=== PATIENT | male | born 1965 | race Caucasian/White ===

== ENCOUNTER → 2020-02-07 | Day surgery (SDC) | payer OTHER ==
[~2020-02-07] MED LIST: BUPIVACAINE HCL 0.5 % INJ/PF 30 ML SDV ONE; LIDOCAINE 2% INJ (20 MG/ML) 20 ML MDV ONE; TRIAMCINOLONE ACETONIDE INJ 40 MG/1 ML VIAL ONE
--- NOTE | 2020-02-07 10:48 | Operative Report ---
Operative Report DATE OF SURGERY: 02/07/20 PREOPERATIVE DIAGNOSIS: Left hip femoral acetabular impingement POSTOPERATIVE DIAGNOSIS: Left hip femoral acetabular impingement OPERATION: Left hip arthrogram, fluoroscopically guided hip injection SURGEON: TONIO HERRERA JR ANESTHESIA: Spinal TISSUE REMOVED OR ALTERED: none COMPLICATIONS: None ESTIMATED BLOOD LOSS: none PROCEDURE: Patient is been having severe left pain that is debilitating. We discussed risks and benefits in the office and the patient agreed to proceed with a hip injection. This serves the purpose of both being diagnostic as well as therapeutic and helping to determine the source of their pain. They understood and after signing operative informed consent we proceeded with a hip injection in the hospital under fluoroscopic guidance. The patient was brought into the fluoroscopic suite and laid supine on the table. The site was marked and prepped in standard sterile fashion. A timeout was performed. Approximately 2 cc of lidocaine were utilized to anesthetize the injection site. Following this a 22-gauge spinal needle was introduced into the left hip joint and confirmed with fluoroscopy. Contrast dye was injected and found to be intracapsular. Following this 1 mL of 40 g of Kenalog in conjunction with 1 cc of 2% lidocaine and 1 cc of quarter percent Marcaine were injected into the hip. A sterile Band-Aid was then placed and the patient was assisted off the fluoroscopic table. They tolerated the procedure well.
== END ==
LOC: RAD 09:31 → EDSTATUS 10:00
PROVIDERS: ATTEND Orthopaedic Surgery
DX: M25.552 Pain in left hip (principal); M25.852 Other specified joint disorders, left hip
CPT/HCPCS: 20610; 77002; J3490 ×2; J3301